=== PATIENT | female | born 1990 | race Caucasian/White ===

== ENCOUNTER 2018-01-13 11:14 | Emergency (ER) | payer OTHER ==
[2018-01-13 11:15] VITALS: BMI 26.6
[2018-01-13 11:50] VITALS: O2SAT 99
--- NOTE | 2018-01-13 12:12 | ED PDOC ---
Arrival/HPI - General Chief Complaint: Upper Extremity Problem/Injury Time Seen by Provider: 01/13/18 11:29 Historian: Patient - History of Present Illness Narrative History of Present Illness (Text): 27 y/o F, with no significant past medical history, presents to the Emergency Department for evaluation of right sided neck mass since 10 days. Patient informs associated right sided throbbing neck pain radiating to the right side of her head and nausea. [place] [facility] [place] the presented symptoms 7 days ago where she was diagnosed with lymphadenopathy and discharged home with amoxicillin. Per patient symptoms have been unimproved with medications and worsened yesterday when she began experiencing stiff neck and exacerbation of pain with movement. She describes pain as 9/10 in severity with movement and expresses difficulty swallowing with a sensation of difficulty breathing secondary to symptoms. She denies any associated vision changes, exacerbation of headache with bright light or loud noises or acute neurological changes. Patient denies any fever, chills, vomiting, diarrhea, abdominal pain, chest pain, shortness of breath, dizziness, back pain or any other complaints. Patient denies any trauma or injury to her neck prior to onset of symptoms. Time/Duration: > week (10 days) Symptom Onset: Gradual Symptom Course: Unchanged, Worsening Quality: Throbbing Severity Level: Moderate Activities at Onset: Eating Context: Home Past Medical History - Provider Review Nursing Documentation Reviewed: Yes - Travel History Have you recently traveled outside [place] w/in the past 3 mons?: No - Infectious Disease Hx of Infectious Diseases: None - Psychiatric Hx Substance Use: No - Anesthesia Hx Anesthesia: No Family/Social History - Physician Review Nursing Documentation Reviewed: Yes Family/Social History: No Known Family HX Smoking Status: Never Smoked Hx Alcohol Use: No Hx Substance Use: No Allergies/Home Meds Allergies/Adverse Reactions: Allergies No Known Allergies Allergy (Verified 08/02/15 09:14) Home Medications: Home Meds Medication Instructions Recorded Confirmed Ondansetron [Zofran Tab] 1 tab PO BID 08/02/15 08/02/15 Multivit/Folic Acid/I 1 tab PO DAILY 08/02/15 08/02/15 [ Plus] Review of Systems - Physician Review All systems were reviewed & negative as marked: Yes - Review of Systems Constitutional: absent: Fevers Eyes: absent: Vision Changes Respiratory: absent: SOB, Cough Cardiovascular: absent: Chest Pain Gastrointestinal: Nausea. absent: Abdominal Pain, Diarrhea, Vomiting Musculoskeletal: Neck Pain (Secondary to right neck mass). absent: Back Pain Neurological: Headache. absent: Dizziness Physical Exam Vital Signs Reviewed: Yes Vital Signs Temp Pulse Resp BP Pulse Ox 01/13/18 11:41 98.9 F 112 H 20 112/73 99 Temperature: Afebrile Blood Pressure: Normal Pulse: Tachycardic Respiratory Rate: Normal Appearance: Positive for: Well-Appearing, Non-Toxic, Uncomfortable Pain Distress: None Mental Status: Positive for: Alert and Oriented X 3 - Systems Exam Head: Present: Atraumatic, Normocephalic Pupils: Present: PERRL Extroacular Muscles: Present: EOMI Conjunctiva: Present: Normal Mouth: Present: Moist Mucous Membranes Pharnyx: Present: ERYTHEMA, Other (large ill circumscribed mass palpaed near L side of neck. No induration or fluctuance noted). No: EXUDATE, TONSILS ENLARGED, Peritonsilar Swelling, Strider Neck: Present: Other (Ill-circumcised mass to right side of her neck. Mildly tender to touch. Limited ROM secondary to pain) Respiratory/Chest: Present: Clear to Auscultation, Good Air Exchange. No: Respiratory Distress, Accessory Muscle Use Cardiovascular: Present: Normal S1, S2, Tachycardic. No: Murmurs Abdomen: Present: Normal Bowel Sounds. No: Tenderness, Distention, Peritoneal Signs Back: Present: Normal Inspection Upper Extremity: Present: Normal Inspection. No: Cyanosis, Edema Lower Extremity: Present: Normal Inspection. No: Edema Neurological: Present: GCS=15, CN II-XII Intact, Speech Normal Skin: Present: Warm, Dry, Normal Color. No: Rashes Psychiatric: Present: Alert, Oriented x 3, Normal Insight, Normal Concentration Medical Decision Making ED Course and Treatment: 01/13/18 11:52 Impression: 27 year old female presents to the Emergency Department for evaluation of right sided neck mass. Differential Diagnosis included but are not limited to: Lymphoma Goiter Dermoid cyst Lipoma Thyroid Nodule Plan: -- CT of Head -- CT of Neck Soft Tissue -- Labs -- Chest X-ray -- Decadron -- Toradol --ENT consult -- Urinalysis -- Reassess and disposition Prior Visits: Notes and results from previous visits were reviewed. Progress Notes: 01/13/18 11:55 Bedside US of neck mass reveals heterogeneous hyperechoic substance noted within mass. Review of labs show no evidence of leukocytosis/shift or elevated ESR. Pending CTH/ CT soft neck. 01/13/18 14:13 CT neck shows a cystic lesion noted within the right parenchyma of the thyroid. Call placed to ENT. Spoke to Dr. Ge(ENT) who after discussion of the case and review of CT maria fernanda gross does not feel emergent ENT consult is warranted at this time. He states if patient is admitted he will see the patient, but states patient should follow up in outpatient clinic. Shared decision making with patient who desires to stay in the hospital. Call placed to Dr. Light. 01/13/18 14:[address] Susan Light(hospitalist) who accepts patient onto her service. 01/13/18 15:53 Dr. Ge at the bedside draining lesion, yielding bloody viscous discharge, requesting specimen to be sent to the lab for cytology. He states patient may go home on steroids and follow up with him in 1 week. Findings communicated with Dr. Light who is in agreement with discharging patient. Admission order canceled. Scripts provided. She is stable for discharge. 01/14/18 16:12 - RAD Interpretation Narrative RAD Interpretations (Text): 01/13/18 14:03 CT of Soft Tissue Neck reviewed by radiologist, shows : FINDINGS: NASOPHARYNX: Unremarkable. SUPRAHYOID NECK: Unremarkable oropharynx, oral cavity, parapharyngeal space and retropharyngeal space. INFRAHYOID NECK: Unremarkable larynx, hypopharynx, and supraglottic space. Vocal cords intact. MASS: None. GLANDS: Parotid and submandibular glands unremarkable. There is a large cystic lesion in the right lobe of the thyroid measuring 22 x 32 x 30 mm in size. LYMPH NODES: Normal. No lymphadenopathy. CERVICAL SPINE: No fracture or focal lesion. VASCULAR STRUCTURES: Unremarkable. OTHER FINDINGS: None. IMPRESSION: There is a large cystic lesion in the right lobe of the thyroid measuring 22 x 32 x 30 mm in size. Chest X-ray reviewed by radiologist, shows: FINDINGS: LUNGS: No active pulmonary disease. PLEURA: No significant pleural effusion identified, no pneumothorax apparent. CARDIOVASCULAR: Normal. OSSEOUS STRUCTURES: No significant abnormalities. VISUALIZED UPPER ABDOMEN: Normal. OTHER FINDINGS: None. IMPRESSION: No active disease. CT of head reviewed by radiologist, shows: FINDINGS: HEMORRHAGE: No intracranial hemorrhage. BRAIN: No mass effect or edema. No atrophy or chronic microvascular ischemic changes. VENTRICLES: Unremarkable. No hydrocephalus. CALVARIUM: Unremarkable. PARANASAL SINUSES: Unremarkable as visualized. No significant inflammatory changes. MASTOID AIR CELLS: Unremarkable as visualized. No inflammatory changes. OTHER FINDINGS: None. IMPRESSION: No intracranial mass, hemorrhage or evidence of acute infarct. Unremarkable examination. Radiology Orders: 01/13/18 11:53 NECK SOFT TISSUE W/CONTRAST [CT] Stat 01/13/18 11:55 HEAD W/O CONTRAST [CT] Stat CHEST PORTABLE [RAD] Stat Cna Instructor: Radiologist - Medication Orders Current Medication Orders: Dexamethasone (Decadron Inj) 10 mg IVP STAT STA Stop: 01/13/18 11:53 Ketorolac Tromethamine (Toradol) 30 mg IVP STAT STA Stop: 01/13/18 11:53 - Scribe Statement The provider has reviewed the documentation as recorded by the Scribe Katherin Aranda. All medical record entries made by the Scribe were at my direction and personally dictated by me. I have reviewed the chart and agree that the record accurately reflects my personal performance of the history, physical exam, medical decision making, and the department course for this patient. I have also personally directed, reviewed, and agree with the discharge instructions and disposition. Disposition/Present on Arrival - Present on Arrival Any Indicators Present on Arrival: No History of DVT/PE: No History of Uncontrolled Diabetes: No Urinary Catheter: No History of Decub. Ulcer: No History Surgical Site Infection Following: None - Disposition Have Diagnosis and Disposition been Completed?: Yes Diagnosis: Neck mass, Thyroid lesion Disposition: HOME/ ROUTINE Disposition Time: 14:32 Patient Plan: Discharge Condition: STABLE Discharge Instructions (ExitCare): Thyroid Nodules, Torticollis (DC) Prescriptions: RX: predniSONE [predniSONE Tab] 20 mg PO DAILY 5 Days #5 tab Referrals: Peter Ge DO [Doctor Osteopathy] - Follow up with primary Celeste Ramires MD [Medical Doctor] - Follow up with primary
[2018-01-13 13:05] LABS: BASO # 0.01 K/mm3 (0.0-2.0); BASO % 0.2 % (0.0-3.0); EOS # 0.1 (0.0-0.7); EOS % 0.9 % (1.5-5.0); GRAN # 3.67 (1.4-6.5); GRAN % 62.4 % (50.0-68.0); HEMOGLOBIN 12.8 g/dL (12.0-16.0); LYMPH # 1.6 (1.2-3.4); LYMPH % 26.4 % (22.0-35.0); MEAN CELL VOLUME 88.5 fl (80.0-105.0); MEAN CORPUSCULAR HGB CONC 33.9 g/dl (31.0-37.0); MEAN PLATELET VOLUME 11.4 fl (7.0-11.0); MONO # 0.6 (0.1-0.6); MONO % 10.1 % (1.0-6.0); RBC 4.27 10^6/uL (3.5-6.1); RED CELL DISTRIBUTION WIDTH 11.6 % (11.5-14.5); WHITE BLOOD COUNT 5.9 10^3/ul (4.5-11.0)
[2018-01-13 13:10] VITALS: BP 96/69; PULSE 85; RESP 17; TEMP 98.5
[2018-01-13 13:11] LABS: ALB/GLOB RATIO 1.2 (1.1-1.8); ALBUMIN 4.5 g/dL (3.0-4.8); ALT/SGPT 26 U/L (7-56); AST/SGOT 32 U/L (14-36); BLOOD UREA NITROGEN 8 mg/dL (7-21); CALCIUM 9.6 mg/dL (8.4-10.5); GFR NON-AFRICAN AMERICAN > 60
[2018-01-13 13:14] LABS: INR 0.98; PARTIAL THROMBOPLASTIN TIME 28.7 Seconds (25.1-36.5); PROTHROMBIN TIME 11.3 SECONDS (9.4-12.5)
[2018-01-13 13:14] LABS: URINE BILIRUBIN NEGATIVE (NEGATIVE); URINE BLOOD MODERATE (NEGATIVE); URINE GLUCOSE (UA) NEGATIVE (NEGATIVE); URINE LEUKOCYTE ESTERASE SMALL Leu/uL (NEGATIVE); URINE PROTEIN NEGATIVE mg/dL (<30 mg/dL); URINE UROBILINOGEN 0.2 E.U./dL (<1 E.U./dL)
[2018-01-13] MEDS ORDERED: Iohexol 350 MG/100 ML VIAL ONE (13:14)
[2018-01-13 13:22] LABS: URINE APPEARANCE CLEAR (CLEAR); URINE COLOR YELLOW (YELLOW)
[2018-01-13 13:27] LABS: URINE RBC 20 - 25 /hpf (0-2)
[2018-01-13 13:28] LABS: URINE BACTERIA MANY (NEG)
--- NOTE | 2018-01-13 13:37 | CT ---
Date of service: 01/13/2018 PROCEDURE: CT HEAD WITHOUT CONTRAST. HISTORY: headache COMPARISON: None available. TECHNIQUE: Axial computed tomography images were obtained through the head/brain without intravenous contrast. Radiation dose: Total exam DLP = 784.71 mGy-cm. This CT exam was performed using one or more of the following dose reduction techniques: Automated exposure control, adjustment of the mA and/or kV according to patient size, and/or use of iterative reconstruction technique. FINDINGS: HEMORRHAGE: No intracranial hemorrhage. BRAIN: No mass effect or edema. No atrophy or chronic microvascular ischemic changes. VENTRICLES: Unremarkable. No hydrocephalus. CALVARIUM: Unremarkable. PARANASAL SINUSES: Unremarkable as visualized. No significant inflammatory changes. MASTOID AIR CELLS: Unremarkable as visualized. No inflammatory changes. OTHER FINDINGS: None. IMPRESSION: No intracranial mass, hemorrhage or evidence of acute infarct. Unremarkable examination.
--- NOTE | 2018-01-13 13:47 | RAD ---
Date of service: 01/13/2018 HISTORY: sob COMPARISON: No prior. FINDINGS: LUNGS: No active pulmonary disease. PLEURA: No significant pleural effusion identified, no pneumothorax apparent. CARDIOVASCULAR: Normal. OSSEOUS STRUCTURES: No significant abnormalities. VISUALIZED UPPER ABDOMEN: Normal. OTHER FINDINGS: None. IMPRESSION: No active disease.
--- NOTE | 2018-01-13 13:55 | CT ---
Date of service: 01/13/2018 PROCEDURE: CT NECK WITH CONTRAST HISTORY: neck mass w/ CHINO COMPARISON: None available. TECHNIQUE: CT of the neck with intravenous contrast. Coronal and sagittal reformats generated. Intravenous contrast dose: 100 cc of Omni 350 Radiation dose: DLP 455 mGy-cm This CT exam was performed using one or more of the following dose reduction techniques: Automated exposure control, adjustment of the mA and/or kV according to patient size, and/or use of iterative reconstruction technique. FINDINGS: NASOPHARYNX: Unremarkable. SUPRAHYOID NECK: Unremarkable oropharynx, oral cavity, parapharyngeal space and retropharyngeal space. INFRAHYOID NECK: Unremarkable larynx, hypopharynx, and supraglottic space. Vocal cords intact. MASS: None. GLANDS: Parotid and submandibular glands unremarkable. There is a large cystic lesion in the right lobe of the thyroid measuring 22 x 32 x 30 mm in size. LYMPH NODES: Normal. No lymphadenopathy. CERVICAL SPINE: No fracture or focal lesion. VASCULAR STRUCTURES: Unremarkable. OTHER FINDINGS: None. IMPRESSION: There is a large cystic lesion in the right lobe of the thyroid measuring 22 x 32 x 30 mm in size.
[2018-01-13 15:20] LABS: FREE T4 1.16 ng/dL (0.78-2.19)
--- NOTE | 2018-01-14 08:03 | CON ---
DATE: 01/13/2018 HISTORY OF PRESENT ILLNESS: This is a 27-year-old female who is evaluated in the emergency room at [facility] with a 1-week history of progressive dysphagia and some neck pain as well as an enlarging neck mass. The patient had been placed previously on antibiotics without cessation of the symptoms and presented to the ER at [facility]. CT scan exam performed by the ER revealed evidence of a 3 cm cystic mass involving the right thyroid lobe. White blood cell counts were within normal limits. The patient was afebrile. PHYSICAL EXAMINATION GENERAL: The patient was alert and oriented x3, in no acute distress. HEENT: Tympanic membranes were normal bilaterally. Oral pharyngeal exam was normal. Intranasal examination was unremarkable. NECK: There was noted to be approximately a 4 cm cystic mass involving the right thyroid lobe. A fine-needle aspirate was carried out with a #23-gauge needle and approximately 10-15 mL of chocolate-brown fluid was aspirated from the mass. This specimen was sent down for further cytology. The remaining of the neck examination was about normal and the patient felt improved following aspiration of the cystic contents of the mass. 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 PLAN: Our plan is to send her home on some p.o. steroids, await cytology and have her follow up within the office with us in approximately a 1-week time span. Thank you again for allowing us to evaluate this patient. Peter Ge DO
== END 2018-01-13 16:27 | disposition home or self-care (01) ==
LOC: ED 11:14 → ERH 14:33 → UNDOADMOB 14:33 → ED 16:27
DX: R22.1 Localized swelling, mass and lump, neck (principal); E07.89 Other specified disorders of thyroid
CPT/HCPCS: 70450; 70491; 71045; 80053; 81001; 84439; 84443; 84702; 85025; 85610; 85651; 85730; 87070; 87086; 88173; 96374; 96375; 99284; J1100; J1885; Q9967